=== PATIENT | female | born 1985 | race Caucasian/White ===

== ENCOUNTER 2021-01-15 15:55 | Outpatient (CLI) | payer OTHER | END 2021-01-15 20:22 | disposition home or self-care (01) | LOC: MLB 15:55 | PROVIDERS: ATTEND Preventive Medicine Preventive Medicine/Occupational Environmental Medicine | DX: Z32.00 Encounter for pregnancy test, result unknown (principal) | CPT/HCPCS: 36415; 84702; 84703 ==

== ENCOUNTER 2021-03-08 09:15 | Outpatient (CLI) | payer OTHER ==
[2021-03-08 10:26] LABS: BASOPHILS % (AUTO) 0.2 % (0.0-2.0); EOSINOPHILS # (AUTO) 0.1 K/uL (0-0.4); EOSINOPHILS % (AUTO) 0.9 % (0.0-4.0); HEMATOCRIT 35.4 % (36-48); HEMOGLOBIN 11.8 g/dL (12.0-16.0); LYMPHOCYTES # (AUTO) 3.4 K/uL (2.5-16.5); LYMPHOCYTES % (AUTO) 26.5 % (20.5-51.1); MEAN CORPUSCULAR HEMOGLOBIN 31 pg (27-31); MEAN CORPUSCULAR HGB CONC 33 g/dL (33-37); MEAN CORPUSCULAR VOLUME 91.8 fL (80-94); MONOCYTES # (AUTO) 0.7 K/uL (0.8-1.0); MONOCYTES % (AUTO) 5.1 % (1.7-9.3); NEUTROPHILS # (AUTO) 8.6 K/uL (1.8-7.7); NEUTROPHILS % (AUTO) 67.3 % (42.2-75.2); PLATELET COUNT (AUTO) 359 K/uL (140-450); RED BLOOD CELL COUNT(AUTO) 3.86 MIL/uL (4.20-5.40); RED CELL DISTRIBUTION WIDTH 12.9 % (11.6-13.7); WHITE BLOOD COUNT (AUTO) 12.8 K/uL (4.8-10.8)
[2021-03-08 10:31] LABS: APPEARANCE,URINE HAZY (CLEAR); BILIRUBIN,URINE NEGATIVE (NEGATIVE); BLOOD, URINE NEGATIVE (NEGATIVE); COLOR,URINE YELLOW (YELLOW); LEUKOCYTE ESTERASE ,URINE NEGATIVE (NEGATIVE); NITRITE, URINE NEGATIVE (NEGATIVE); PH,URINE 7.5 (5.0-9.0); UGLUCOSE NEGATIVE (NEGATIVE)
[2021-03-08 11:06] LABS: ALBUMIN 3.5 g/dL (3.4-5.0); ANION GAP 11.8 (8-16); CARBON DIOXIDE 25.8 mmol/L (21-32); CHOL/HDL RATIO 3.1 (1-4.5); CREATININE 0.6 mg/dL (0.6-1.3); POTASSIUM 3.6 mmol/L (3.5-5.1); THYROID STIMULATING HORMONE 0.52 uIU/mL (0.34-3.74); TOTAL BILIRUBIN 0.2 mg/dL (0.0-1.0)
[2021-03-09 09:06] LABS: HEPATITIS B SURFACE ANTIGEN Negative (Negative)
== END 2021-03-08 19:44 | disposition home or self-care (01) ==
LOC: MLB 09:15
PROVIDERS: ATTEND Obstetrics & Gynecology
DX: Z00.00 Encounter for general adult medical examination without abnormal findings (principal); Z11.3 Encounter for screening for infections with a predominantly sexual mode of transmission; Z98.84 Bariatric surgery status
CPT/HCPCS: 36415; 80053; 81003; 82607; 83036; 84443; 84702; 85025; 86592; 86702; 86762; 86886; 86900; 86901; 87340

== ENCOUNTER 2021-04-30 07:23 | Outpatient (CLI) | payer OTHER ==
[2021-04-30 08:17] LABS: GLUCOSE,FASTING GESTATIONAL 88 mg/dL (70-110)
== END 2021-04-30 19:49 | disposition home or self-care (01) ==
LOC: MLB 07:23
PROVIDERS: ATTEND Obstetrics & Gynecology
DX: Z34.90 Encounter for supervision of normal pregnancy, unspecified, unspecified trimester (principal); E84.9 Cystic fibrosis, unspecified
CPT/HCPCS: 36415; 82951

== ENCOUNTER 2021-07-07 09:09 | Outpatient (CLI) | payer OTHER ==
[2021-07-07 09:46] LABS: BASOPHILS % (AUTO) 0.3 % (0.0-2.0); EOSINOPHILS # (AUTO) 0.1 K/uL (0-0.4); HEMATOCRIT 31.6 % (36-48); HEMOGLOBIN 10.5 g/dL (12.0-16.0); LYMPHOCYTES # (AUTO) 2.9 K/uL (2.5-16.5); LYMPHOCYTES % (AUTO) 22.1 % (20.5-51.1); MEAN CORPUSCULAR HEMOGLOBIN 30 pg (27-31); MEAN CORPUSCULAR HGB CONC 33 g/dL (33-37); MEAN CORPUSCULAR VOLUME 90.8 fL (80-94); MONOCYTES # (AUTO) 0.8 K/uL (0.8-1.0); NEUTROPHILS # (AUTO) 9.1 K/uL (1.8-7.7); NEUTROPHILS % (AUTO) 70.6 % (42.2-75.2); PLATELET COUNT (AUTO) 350 K/uL (140-450); RED BLOOD CELL COUNT(AUTO) 3.48 MIL/uL (4.20-5.40); RED CELL DISTRIBUTION WIDTH 13.5 % (11.6-13.7); WHITE BLOOD COUNT (AUTO) 12.9 K/uL (4.8-10.8)
[2021-07-07 12:12] LABS: GLUCOSE,FASTING GESTATIONAL 82 mg/dL (70-110)
== END 2021-07-07 21:51 | disposition home or self-care (01) ==
LOC: MLB 09:09
PROVIDERS: ATTEND Specialist
DX: O09.522 Supervision of elderly multigravida, second trimester (principal); Z3A.00 Weeks of gestation of pregnancy not specified
CPT/HCPCS: 36415; 82947; 82951; 85025; 86592; 86886; 86900; 86901

== ENCOUNTER 2023-12-28 10:38 | Outpatient (CLI) | payer OTHER ==
[2023-12-28 11:15] LABS: BASOPHILS # (AUTO) 0.1 K/uL (0.00-0.22); EOSINOPHILS # (AUTO) 0.4 K/uL (0-0.4); EOSINOPHILS % (AUTO) 4.1 % (0.0-4.0); HEMATOCRIT 32.3 % (36-48); HEMOGLOBIN 10.5 g/dL (12.0-16.0); LYMPHOCYTES % (AUTO) 32.9 % (20.5-51.1); MEAN CORPUSCULAR HEMOGLOBIN 27 pg (27-31); MEAN CORPUSCULAR HGB CONC 33 g/dL (33-37); MEAN CORPUSCULAR VOLUME 81.8 fL (80-94); MONOCYTES # (AUTO) 0.7 K/uL (0.8-1.0); MONOCYTES % (AUTO) 7.5 % (1.7-9.3); NEUTROPHILS % (AUTO) 54.5 % (42.2-75.2); PLATELET COUNT (AUTO) 431 K/uL (140-450); RED BLOOD CELL COUNT(AUTO) 3.96 MIL/uL (4.20-5.40); RED CELL DISTRIBUTION WIDTH 18.3 % (11.6-13.7); WHITE BLOOD COUNT (AUTO) 9.2 K/uL (4.8-10.8)
[2023-12-28 12:10] LABS: ALBUMIN 3.5 g/dL (3.4-5.0); ANION GAP 12.3 (8-16); CALCIUM 8.8 mg/dL (8.5-10.1); CARBON DIOXIDE 26.7 mmol/L (21-32); CHOL/HDL RATIO 2.8 (1-4.5); CREATININE 0.7 mg/dL (0.6-1.3); THYROID STIMULATING HORMONE 0.95 uIU/mL (0.34-3.74); TOTAL BILIRUBIN 0.3 mg/dL (0.0-1.0)
[2023-12-29 11:33] LABS: HEMOGLOBIN A1C 5.7 % (4.8-5.6); VITAMIN D, 25-HYDROXY 17.6 ng/mL (30.0-100.0)
== END 2023-12-28 20:00 | disposition home or self-care (01) ==
LOC: MLB 10:38
PROVIDERS: ATTEND Nurse Practitioner Family
DX: Z00.00 Encounter for general adult medical examination without abnormal findings (principal); Z68.33 Body mass index [BMI] 33.0-33.9, adult
CPT/HCPCS: 36415; 71046; 80053; 82306; 83036; 84443; 85025